=== PATIENT | male | born 1975 | race Caucasian/White ===

== ENCOUNTER → 2020-11-17 | Outpatient (CLI) | payer BC ==
--- NOTE | 2020-11-17 10:22 | REP ---
INDICATION: LEFT LOWER QUAD PAIN. COMPARISON: None. TECHNIQUE: Real-time sonographic evaluation of ABDOMEN performed. FINDINGS: The gallbladder demonstrates no evidence of intraluminal sludge or calculi, wall thickening or pericholecystic fluid. There is no intrahepatic or extrahepatic biliary dilatation, common bile duct measures 4 mm in maximum diameter. Liver demonstrates heterogeneous diffuse increased echotexture compatible with heterogeneous fibrofatty infiltration. Several cysts are seen in the liver, the largest in the left lobe measures 2.6 x 1.6 x 2.1 cm and in the right lobe 2.3 x 1.6 x 1.9 cm. Visualized pancreas is grossly unremarkable, not optimally seen due to overlying bowel gas. Spleen is mildly enlarged, measuring 13.2 x 5.4 x 13.9 cm. Splenic index 990.. There is no hydronephrosis of either kidney. There is a hypoechoic nodule in the upper pole the left kidney with internal echoes, representing either complex cyst or solid nodule. This measures 2.1 x 2.2 x 1.9 cm. A small echogenic area in the renal cortex of the lower pole the left kidney may represent a small angiomyolipoma 9 mm in diameter. The right kidney measures 11.7 x 4.2 x 5.1 cm. Left renal dimensions are 13.9 x 4.4 x 5.1 cm. The abdominal aorta is normal in caliber with no aneurysm. No free fluid is seen. Scanning in the region of pain in the left lower quadrant demonstrates no gross abnormality. IMPRESSION: Diffuse fibrofatty infiltration of the liver. Several liver cysts are visualized. Mild splenomegaly. Hypoechoic nodule upper pole left kidney 2.2 cm in diameter, either complex cyst or solid nodule. 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 Recommend dedicated MRI or CT kidneys with and without contrast to further evaluate. <Electronically signed by Nas Teixeira > 11/17/20 1018
== END ==
LOC: M RAD 08:55
PROVIDERS: ATTEND Nurse Practitioner Family
DX: R10.32 Left lower quadrant pain (principal)